=== PATIENT | female | born 1985 | race Caucasian/White ===

== ENCOUNTER 2016-07-29 18:11 | Emergency (ER) | payer MEDICAID ==
[2016-07-29] MEDS ORDERED: DEXAMETHASONE 10 MG/ML VIAL PO STA (20:20)
[2016-07-29] MEDS ORDERED: BENZONATATE 100 MG CAPSULE PO STA (20:21)
[2016-07-29] MEDS ORDERED: BENZONATATE 100 MG CAPSULE PO ONE (20:24)
[2016-07-29] MEDS ORDERED: DEXAMETHASONE 10 MG/ML VIAL ONE (20:24)
== END 2016-07-29 21:16 | disposition home or self-care (01) ==
DX: J45.901 Unspecified asthma with (acute) exacerbation (principal)
CPT/HCPCS: 71020; 81025; 99283; A9270

== ENCOUNTER 2016-08-06 13:30 | Emergency (ER) | payer MEDICAID ==
[2016-08-06 13:37] VITALS: BP 131/99
--- NOTE | 2016-08-06 14:03 | ED Physician Documentation ---
PD HPI HEENT - Stated complaint Stated Complaint: Sinus pressure - Chief complaint Chief Complaint: Heent - History obtained from History obtained from: Patient - History of Present Illness Timing - onset: Other (History of sinus surgery as a teenager, for the last week she's had increasing right sided facial sinus pressure which is worse when she bends forward. The pain is severe enough today that it makes her cry and has not responded to outpatient [id number] medications including Tylenol and ibuprofen. She denies fevers or possibility of .) Review of Systems Constitutional: denies: Fever, Chills Eyes: reports: Other (briefly had double vision while texting today which resolved on its own). denies: Loss of vision, Decreased vision, Photophobia Ears: denies: Loss of hearing, Ear pain Nose: reports: Rhinorrhea / runny nose, Congestion, Sinus pressure / pain Throat: denies: Sore throat PD PAST MEDICAL HISTORY - Past Medical History Respiratory: Asthma GI: Other Psych: Bipolar disorder, ADD/ADHD - Past Surgical History Past Surgical History: Yes - Present Medications Home Medications: Ambulatory Orders Medication Instructions Recorded Confirmed Albuterol 1 puffs PO DAILY 07/29/16 07/29/16 Benzonatate [Tessalon] 100 mg PO TID PRN #20 capsule 07/29/16 Fluoxetine HCl 40 mg PO DAILY 07/29/16 07/29/16 Amox/Clav 875/125 [Augmentin] 1 each PO Q12H 14 Days 08/06/16 Mometasone Furoate [Nasonex] 1 spray NS BID #1 spray.pump 08/06/16 Oxycodone HCl/Acetaminophen 1 - 2 tab PO Q4H PRN #10 tablet 08/06/16 [Percocet 5-325 mg Tablet] - Allergies Allergies/Adverse Reactions: Allergies Allergy/AdvReac Type Severity Reaction Status Date / Time No Known Drug Allergies Allergy Verified 11/06/15 19:31 - Social History Does the pt smoke?: No Smoking Status: Never smoker Does the pt drink ETOH?: Yes Does the pt have substance abuse?: Yes - Immunizations Immunizations are current?: Yes - POLST Patient has POLST: No PD ED PE NORMAL - Vitals Vital signs reviewed: Yes - General General: Alert and oriented X 3, No acute distress - HEENT HEENT: Pharynx benign, Other (Frontal sinus TTP on Right, no facial swelling, swollen turbinates.) - Neck Neck: Supple, no meningeal sign, No bony TTP - Neuro Neuro: Alert and oriented X 3, vice admiral 2-12 intact (no cranial neuropathies.), Normal speech - Psych Psych: Normal mood, Normal affect Results - Vitals Vitals: Vital Signs - 24 hr 08/06/16 13:34 Temperature 35.9 C L Heart Rate 94 Respiratory 17 Rate Blood Pressure 131/99 H O2 Saturation 100 Oxygen O2 Source Room air PD MEDICAL DECISION MAKING - ED course ED course: She has severe sinusitis. It is noted that she had diplopia briefly, but there are no cranial neuropathies evident on examination now and the diplopia is gone. She thinks it was just from severe pain. The patient and family were counseled as to the diagnosis and need for followup. I counseled the patient with regard to signs and symptoms that would necessitate an urgent reevaluation in the emergency department. They understand they are welcome to return at any time if worse or if not improving as expected. This document was made in part using voice recognition software. While efforts are made to proofread this document, sound alike and grammatical errors may occur. Departure - Departure Disposition: 01 Home, Self Care Clinical Impression: Sinusitis Qualifiers: Sinusitis location: frontal Chronicity: acute Recurrence: recurrent Qualified Code(s): J01.11 - Acute recurrent frontal sinusitis Condition: Good Record reviewed to determine appropriate education?: Yes Instructions: ED Sinusitis Abx Tx Prescriptions: Amox/Clav 875/125 [Augmentin] 1 each PO Q12H 14 Days Mometasone Furoate [Nasonex] 1 spray NS BID #1 spray.pump Oxycodone HCl/Acetaminophen [Percocet 5-325 mg Tablet] 1 - 2 tab PO Q4H PRN #10 tablet PRN Reason: Pain Comments: If you're not better within the week or get worse or have new symptoms, recommend following up with an ear nose and throat physician, the closest is in [place], call [phone] to schedule an appointment. Otherwise followup with your physician in one week. Your blood pressure was elevated today on check in to the emergency department. This does not mean that you have hypertension, it is a common phenomenon to check into the emergency department and have elevated blood pressure. I recommend that you see your primary care physician within the week to have it rechecked when you're feeling better. Do not drink or drive while on narcotic pain medicine. Note that many narcotic pain relievers also contain tylenol/acetaminophen. Please ensure that your total dose of acetaminophen from all sources does not exceed 3 grams (3000mg) per day. You may constipated on this medication, take a stool softener such as "Colace" twice a day while you are on it. Also recommend a [id number] laxative such as senna or MiraLAX any day that you do not have a bowel movement. If you received narcotic pain medication in the emergency department, do not drive or operate machinery for the next 24 hours. Forms: Activity restrictions
== END 2016-08-06 14:08 | disposition home or self-care (01) ==
LOC: ED 13:30
DX: J01.11 Acute recurrent frontal sinusitis (principal); R03.0 Elevated blood-pressure reading, without diagnosis of hypertension; J45.909 Unspecified asthma, uncomplicated
CPT/HCPCS: 99283